=== PATIENT | female | born 1945 | race Caucasian/White ===

== ENCOUNTER → 2016-11-13 | Outpatient (CLI) | payer MEDICARE, OTHER ==
[2014-12-19 23:10] VITALS: BP 157/105
[~2016-11-13] MED LIST: ALPR1TAB2 PO; BARIUM SULFATE 2.1% 450 ML SUSP PO ONE; GUAI600T47 PO; MAGN400C PO; PSEU120T9 PO; TRAM50TA PO
--- NOTE | 2016-11-13 14:27 | RAD ---
Chest, 2 views, 11/13/2016: History: Weight loss The lungs are hyperexpanded suggesting COPD. The heart size is normal. The lungs are clear. There is no evidence of pleural fluid. IMPRESSION: No acute cardiopulmonary abnormality is detected.
--- NOTE | 2016-11-13 15:46 | RAD ---
CT of the abdomen and pelvis without contrast, 11/13/2016: History: Unexplained weight loss, left-sided pain, diarrhea Multidetector CT imaging was performed without IV contrast as requested. Oral contrast material was given for GI tract opacification. There is a vague low-density lesion in the posterior aspect of the right lobe of liver. A probable hemangioma was seen in this region on the study of 11/24/2008. This lesion is unchanged in size. The unopacified liver is otherwise unremarkable. No gallbladder abnormality is seen. The pancreas cannot be clearly from unopacified duodenum. No pancreatic mass is evident. The spleen is of normal size. The right kidney is malrotated. There is mild bilateral renal cortical scarring. There are several low density lesions in both kidneys, most likely representing cysts. There is a 5 mm low-density lesion in the posterior aspect of the right kidney which appears to be fat-containing, compatible with a tiny angiomyolipoma. The kidneys show no evidence of obstruction. The abdominal aorta is of normal caliber. Artifacts arising from a right hip prosthesis degrade image quality in the lower pelvis. No abdominal or pelvic adenopathy is seen. The uterus is surgically absent. The bowel loops are not dilated. Numerous surgical clips are present in the right lower quadrant. There is a paucity of intra-abdominal fat the bowel loops. There is moderate gastric mural thickening. Lack of gastric distention is probably contributing to this appearance. No free fluid or free air is evident in the abdomen or pelvis. There is a moderate right convexity lumbar scoliosis with moderate multilevel degenerative change. There is a mild spondylolisthesis at L4-5 due to facet joint arthropathy. The combination of findings is causing moderate central spinal stenosis at L4-5. IMPRESSION: 1. Bilateral renal cysts. 2. Tiny right renal angiomyolipoma. 3. Apparent gastric mural thickening is probably secondary to lack of gastric distention on these scans. Gastritis cannot be excluded. 4. Moderate central spinal stenosis at L4-5 PQRS Compliance Statement: One or more of the following individualized dose reduction techniques were utilized for this examination: 1. Automated exposure control 2. Adjustment of the mA and/or kV according to patient size 3. Use of iterative reconstruction technique
== END | disposition home or self-care (01) ==
LOC: CT 13:09
PROVIDERS: ATTEND Internal Medicine Gastroenterology
DX: R63.4 Abnormal weight loss (principal); R19.7 Diarrhea, unspecified
CPT/HCPCS: 71020; 74176

== ENCOUNTER 2017-08-11 20:46 | Emergency (ER) | payer MEDICARE, OTHER ==
[~2017-08-11 20:46] MED LIST changes: -BARIUM SULFATE 2.1% 450 ML SUSP PO ONE
--- NOTE | 2017-08-11 21:29 | PHYS DOC ---
Past History Past Medical History: Anxiety, Cancer Past Surgical History: Appendectomy, Hip Replacement, Hysterectomy, Other Smoking: Non-smoker Alcohol Use: Occasionally Drug Use: None Adult General Chief Complaint Chief Complaint: urinary urgency frequency and pain [facility] Patient is a 72-year-old female with a known history of hypertension and prior history of ovarian cancer as well as liposarcoma who received both surgically and chemotherapy for both ailments. She has a history of scoliosis and spinal stenosis as well as chronic sciatica and bladder suspension history who presents with dysuria urgency and frequency that began yesterday. She had noted increasing change in color darkness as well as some pink blood in her urine with the symptoms. She denies any nausea, vomiting, diarrhea but actually has a history of constipation. She was on tramadol for a long period of time but has weaned. Office and only takes Tylenol Motrin for her pain. She admits she's been on Omnicef about 12 days ago for a sinus infection which is recently seen by her primary care doctor on and started on clindamycin. She's only taken one dose today and actually has had a couple loose stools associated with it. She denies any fevers, chills, back pain that is new. She denies any trauma or falls. She denies any numbness and tingling in his new to her lower legs or denies any weakness in her lower extremity's. Review of Systems Review of Systems Constitutional: Denies fever or chills [] Eyes: Denies change in visual acuity, redness, or eye pain [] HENT: Denies nasal congestion or sore throat [] Respiratory: Denies cough or shortness of breath [] Cardiovascular: No additional information not addressed in [facility] [] GI: Positive for lower abdominal pain without nausea vomiting but she stools she has had a couple loose stools typically is constipated : Positive for dysuria urgency frequency and hematuria Musculoskeletal: Patient does complain of chronic lower back pain nothing new today no chronic joint pain Integument: Denies rash or skin lesions [] Neurologic: Denies headache, focal weakness or sensory changes since that she feels "" achy [] Endocrine: Denies polyuria or polydipsia [] All other systems were reviewed and found to be within normal limits, except as documented in this note. Allergies Allergies Allergies Coded Allergies Type Severity Reaction Last Updated Verified Sulfa (Sulfonamide Antibiotics) Allergy Intermediate 6/29/15 No ciprofloxacin Allergy Intermediate 12/20/14 No codeine Allergy Intermediate 12/20/14 No iodine Allergy Intermediate 12/20/14 No morphine Allergy Intermediate 12/20/14 No Physical Exam Physical Exam Of the vital signs recorded on the chart at this time they're within normal limits Constitutional: Well developed, well nourished, no acute distress, non-toxic appearance. [] Cardiovascular:Heart rate regular rhythm, no murmur [] Lungs & Thorax: Bilateral breath sounds clear to auscultation [] Abdomen: Bowel sounds normal, soft, tenderness only in the suprapubic region with no Feldman Prasad sign, no masses, no pulsatile masses. No guarding rebound or organomegaly no Jason's or McBurney's point tenderness [] Skin: Warm, dry, no erythema, no rash. [] Back: No tenderness, no CVA tenderness. [] Neurologic: Alert and oriented X 3, normal motor function, normal sensory function, no focal deficits noted. [] Psychologic: Affect normal, judgement normal, mood normal. [] EKG EKG [] Radiology/Procedures Radiology/Procedures [] Course & Med Decision Making Course & Med Decision Making Pertinent Labs and Imaging studies reviewed. (See chart for details) [] Laboratory Tests Test 08/11/17 21:00 Urine Collection Type Unknown Urine Color [place] Urine Clarity Clear Urine pH 7.5 Urine Specific [place] 1.015 Urine Protein 100 mg/dl (NEG-TRACE) Urine Glucose (UA) Neg mg/dL (NEG) Urine Ketones (Stick) Neg mg/dL (NEG) Urine Blood Large (NEG) Urine Nitrite Neg (NEG) Urine Bilirubin Neg (NEG) Urine Urobilinogen Dipstick 0.2 mg/dL (0.2 mg/dL) Urine Leukocyte Esterase Small (NEG) Urine RBC 20-40 /HPF (0-2) Urine WBC 11-20 /HPF (0-4) Urine Squamous Epithelial Cells Occ /LPF Urine Bacteria Few /HPF (0-FEW) Patient's urinalysis has a few epithelial cells, significant bacteria, white blood cells and red blood cells. Given her symptoms I'll treat this as a UTI Patient has a soft abdomen and there is no tenderness in the right lower quadrant and she has no appendix. Impression: UTI, mild hematuria discharge: I've spoken with the patient and/or caregivers. I've explained the patient's condition, diagnosis and treatment plan based on information available to me at this time. I've answered the patient's and/or caregivers questions and addressed any concerns. The patient and/or caregivers have a good understanding the patient's diagnosis, condition and treatment plan as can be expected at this point. Vital signs have been stabilized. The patient's condition is stable for discharge from the emergency department. The patient will pursue further outpatient evaluation with her primary care provider or other designated consulting physician as outlined in the discharge instructions. Patient and/or caregivers are agreeable to this plan of care and follow-up instructions have been explained in detail. The patient and/or caregivers have received these instructions in written format and expressed understanding of these discharge instructions. The patient and her caregivers are aware that if any significant change in condition or worsening of symptoms should prompt him to immediately return to this of the closest emergency department. If an emergent department is not readily available I would encourage him to call 911. Zahida Disclaimer Dragon Disclaimer This electronic medical record was generated, in whole or in part, using a voice recognition dictation system. Departure Departure: Impression: Primary Impression: Urinary tract infection Disposition: HOME, SELF-CARE Condition: IMPROVED Referrals: DESEAN KOENIG MD (PCP) Patient Instructions: Urinary Tract Infection Additional Instructions: discharge: I've spoken with the patient and/or caregivers. I've explained the patient's condition, diagnosis and treatment plan based on information available to me at this time. I've answered the patient's and/or caregivers questions and addressed any concerns. The patient and/or caregivers have a good understanding the patient's diagnosis, condition and treatment plan as can be expected at this point. Vital signs have been stabilized. The patient's condition is stable for discharge from the emergency department. The patient will pursue further outpatient evaluation with her primary care provider or other designated consulting physician as outlined in the discharge instructions. Patient and/or caregivers are agreeable to this plan of care and follow-up instructions have been explained in detail. The patient and/or caregivers have received these instructions in written format and expressed understanding of these discharge instructions. The patient and her caregivers are aware that if any significant change in condition or worsening of symptoms should prompt him to immediately return to this of the closest emergency department. If an emergent department is not readily available I would encourage him to call 911. Scripts Naproxen Sodium (NAPROXEN SODIUM) 275 Mg Tablet 275 MG PO BID for 7 Days, #14 TAB Prov: JUSTYNA RAMIREZ MD 08/11/17 Phenazopyridine Hcl (PYRIDIUM) 200 Mg Tablet 200 MG PO TID for 5 Days, #15 TAB Prov: JUSTYNA RAMIREZ MD 08/11/17 Nitrofurantoin Monohyd/M-Cryst (MACROBID 100 MG CAPSULE) 100 Mg Capsule 1 CAP PO BID, #20 CAP Prov: JUSTYNA RAMIREZ MD 08/11/17 JUSTYNA RAMIREZ MD Aug 11, 2017 21:28
[2017-08-11 21:56] LABS: BILIRUBIN,URINE NEG (NEG); CLARITY,URINE CLEAR; COLOR,URINE PINK; GLUCOSE,URINE NEG (NEG)
[2017-08-11 21:57] LABS: BACTERIA,URINE FEW /HPF (0-FEW); NITRITE,URINE NEG (NEG); RBC,URINE 20-40 /HPF (0-2); SQUAMOUS EPITHELIAL CELL,UR OCC /LPF; UROBILINOGEN,URINE 0.2 mg/dL (0.2 mg/dL)
[2017-08-11] MEDS ORDERED: NITR100C62 PO (22:08)
[2017-08-11] MEDS ORDERED: NAPR275T59 PO (22:08)
[2017-08-11] MEDS ORDERED: PHEN-318 PO (22:08)
[2017-08-11 22:21] VITALS: BP 150/90
== END 2017-08-11 22:23 | disposition home or self-care (01) ==
LOC: ER 20:46
DX: N39.0 Urinary tract infection, site not specified (principal); R31.9 Hematuria, unspecified; F41.9 Anxiety disorder, unspecified; I10 Essential (primary) hypertension; Z88.2 Allergy status to sulfonamides; Z88.1 Allergy status to other antibiotic agents; Z88.5 Allergy status to narcotic agent; Z91.041 Radiographic dye allergy status
CPT/HCPCS: 81001; 87086; 99284

== ENCOUNTER → 2018-07-31 | Outpatient (CLI) | payer MEDICARE, OTHER ==
[~2018-07-31] MED LIST changes: +NAPR275T59 PO; +NITR100C62 PO; +PHEN-318 PO
--- NOTE | 2018-07-31 14:56 | RAD ---
CT left hip without contrast TECHNIQUE: Helical multiplanar reconstructed noncontrast CT imaging of the left hip was acquired. HISTORY: Left hip pain. No injury. FINDINGS: No fracture or dislocation of the left hip. No imaging changes of osteonecrosis. There is mild joint space narrowing perhaps due to chondromalacia without significant arthritic change of the left hip evident. No pathologic lytic or sclerotic bone lesion. There is a subcentimeter well-circumscribed round lytic lesion of the anterior subcapital femoral neck most typical of a synovial herniation or bone cyst. The soft tissues demonstrate no edema or hematoma or mass. Visualized lower lumbar spine demonstrates disc height loss, disc bulges and endplate and facet spurs with spinal canal and neural foraminal stenoses with probable severe stenotic disease at L4-L5 associated with grade 1 anterolisthesis of L4 on L5. IMPRESSION: No acute osseous injury of the left hip. Lower lumbar spine disc disease as described above. Exposure: One or more of the following individualized dose reduction techniques were utilized for this examination: 1. Automated exposure control 2. Adjustment of the mA and/or kV according to patient size 3. Use of iterative reconstruction technique Electronically signed by: Sachin Gonzales MD (07/31/2018 2:51 PM) [id number]
== END | disposition home or self-care (01) ==
LOC: CT 14:30
PROVIDERS: ATTEND Family Medicine
DX: M25.552 Pain in left hip (principal); M46.46 Discitis, unspecified, lumbar region
CPT/HCPCS: 73700

== ENCOUNTER → 2019-03-24 | Outpatient (CLI) | payer OTHER, MEDICARE ==
--- NOTE | 2019-03-24 14:09 | RAD ---
CHEST PA LATERAL History: Pain, left rib contusion Comparison: 11/13/2016 2 view chest x-ray exam. Findings: The cardiomediastinal silhouette is normal. Pulmonary vasculature is normal. The lungs are clear. No pleural effusion or pneumothorax is seen. Pulmonary hyperinflation is present. There is no acute bone abnormality. Osteopenia noted. Dextroconvex rotoscoliosis of the low thoracic to upper lumbar spine noted. IMPRESSION: No acute cardiopulmonary process. COPD. No displaced fracture. Consider further imaging if fracture is a persistent concern. Electronically signed by: Tomas Walker MD (03/24/2019 2:06 PM) [facility]
--- NOTE | 2019-03-24 14:10 | RAD ---
Examination: CT HEAD WO CONTRAST History: Headache Comparison/Correlation: 05/03/2016 CT head and maxillofacial without contrast Findings: Axial images of the head rotated without contrast. Mild atrophy is present. No intracranial hemorrhage, midline shift, or mass effect. Bony structures are intact. Impression: No suspicious process. PQRS Compliance Statement: One or more of the following individualized dose reduction techniques were utilized for this examination: 1. Automated exposure control 2. Adjustment of the mA and/or kV according to patient size 3. Use of iterative reconstruction technique Electronically signed by: Tomas Walker MD (03/24/2019 2:07 PM) [facility]
== END | disposition home or self-care (01) ==
LOC: DXRAD 13:28
PROVIDERS: ATTEND Family Medicine
DX: S20.212A Contusion of left front wall of thorax, initial encounter (principal); S09.8XXA Other specified injuries of head, initial encounter; R51 Headache; J44.9 Chronic obstructive pulmonary disease, unspecified; M41.85 Other forms of scoliosis, thoracolumbar region; X58.XXXA Exposure to other specified factors, initial encounter; Y93.89 Activity, other specified; Y92.89 Other specified places as the place of occurrence of the external cause; Y99.8 Other external cause status
CPT/HCPCS: 70450; 71046

== ENCOUNTER → 2019-04-27 | Outpatient (CLI) | payer MEDICARE, OTHER ==
--- NOTE | 2019-04-27 14:35 | RAD ---
EXAM: Ultrasound neck soft tissues. HISTORY: Enlarged lymph nodes. COMPARISON: None. FINDINGS: Sonographic evaluation of the neck soft tissues was performed at the sites of concern. At the anterior site of concern, a normal-appearing left cervical lymph node measures 9 x 7 mm and has a normal fatty hilus. At the posterior site of concern, there is an osseous or densely calcified structure. IMPRESSION: 1. Normal left neck lymph node. No pathologically appearing lymph nodes are seen. 2. The posterior left lateral site of concern appears to correspond with an osseous structure. Correlate for the anatomy of concern. CT of the neck soft tissues could further evaluate if this remains unclear. Electronically signed by: Makayla Villarreal MD (04/27/2019 2:32 PM) [facility]
== END | disposition home or self-care (01) ==
LOC: US 13:00
PROVIDERS: ATTEND Family Medicine
DX: R59.0 Localized enlarged lymph nodes (principal)
CPT/HCPCS: 76536

== ENCOUNTER → 2019-06-04 | Outpatient (CLI) | payer MEDICARE, OTHER ==
--- NOTE | 2019-06-09 17:25 | RAD ---
DATE: 06/04/2019. EXAM: MAMMO CRISTY SCREENING BILATERAL. HISTORY: Routine mammographic screening. COMPARISON: 09/13/2017. This study was interpreted with the benefit of Computerized Aided Detection (CAD). FINDINGS: Breast Density: HETERO The breast parenchyma is heterogenously dense, which could reduce sensitivity of mammography. Breast parenchyma level C.. There are no suspicious masses, microcalcifications or architectural distortion. Scattered and vascular calcifications are benign. A circumscribed nodular density deep to the right nipple is unchanged. The parenchymal pattern is stable. BI-RADS CATEGORY: 2 BENIGN FINDING(S). RECOMMENDED FOLLOW-UP: 12M 12 MONTH FOLLOW-UP. PQRS compliance statement: Patient information was entered into a reminder system with a target due date 06/04/2020 for the next mammogram. Mammography is a sensitive method for finding small breast cancers, but it does not detect them all and is not a substitute for careful clinical examination. A negative mammogram does not negate a clinically suspicious finding and should not result in delay in biopsying a clinically suspicious abnormality. "Our facility is accredited by the [employer] Mammography [employer]."
== END | disposition home or self-care (01) ==
LOC: MAMMO 11:37
PROVIDERS: ATTEND Obstetrics & Gynecology
DX: Z12.31 Encounter for screening mammogram for malignant neoplasm of breast (principal); N64.89 Other specified disorders of breast
CPT/HCPCS: 77063; 77067

== ENCOUNTER → 2020-08-31 | Outpatient (CLI) | payer MEDICARE, OTHER ==
--- NOTE | 2020-08-31 12:07 | RAD ---
EXAM: Bilateral digital diagnostic mammogram with tomosynthesis; left breast sonogram. HISTORY: 75-year-old female presents with palpable left breast lump. The patient is due for bilateral mammography. TECHNIQUE: Full-field digital craniocaudal and mediolateral oblique 2D and 3D tomosynthesis images of both breasts are obtained for evaluation. Computer aided detection was applied. Sonographic imaging of the left breast and axilla at the site of palpable concern was performed. COMPARISON: 08/05/2018 and 09/13/2017 BREAST PARENCHYMAL DENSITY: Level C - Heterogeneously dense. FINDINGS: There is no new suspicious mass, microcalcification or region of architectural distortion. There are stable areas of asymmetry and nodularity within both breasts. The 3 year course of stabilit y favors benignity. There are few benign calcifications. Sonographic imaging of the left breast demonstrates a benign lymph node measuring 1.2 cm at the 2:00 position 11 cm from the nipple, corresponding with the site of palpable concern. This demonstrates a fatty hilum and thin cortex. This demonstrates no suspicious sonographic features. There is a 9 mm ci rcumscribed solid nodule without flow isoechoic to fat within the superficial soft tissues at the 10: 00 position 10 cm from the nipple, the appearance of which favors a lipoma. This demonstrates no susp icious sonographic features. No suspicious sonographic lesion is seen IMPRESSION: 1. Benign axillary tail lymph node and small benign lipoma within the posterior 2:00 and 10:00 positi ons of the left breast at sites of reported concern. There is no suspicious mammographic or sonograph ic finding. 2. BI-RADS Category 2: Benign finding(s). Annual mammography is recommended. RECOMMENDATION: Continued clinical follow-up of palpable abnormalities is recommended. Repeat imaging can be performed if there is continuing concern. Negative imaging should not preclude the decision t o biopsy a palpable abnormality if there is continued concern. If your mammogram demonstrates that you have dense breast tissue, which could hide abnormalities, and if you have other risk factors for breast cancer that have been identified, you might benefit from s upplemental screening tests that may be suggested by your ordering physician. Dense breast tissue, i n and of itself, is a relatively common condition. This information is not provided to cause undue c oncern, but rather to raise your awareness and to promote discussion with your physician regarding th e presence of other risk factors, in addition to dense breast tissue. A report of your mammography re sults will be sent to you and your physician. You should contact your physician if you have any ques tions or concerns regarding this report. Mammography is a sensitive method for finding small breast cancers, but it does not detect them all a nd is not a substitute for careful clinical examination. A negative mammogram does not negate a clin ically suspicious finding and should not result in delay in biopsying a clinically suspicious abnorma lity. PQRS compliance statement - Patient information was entered into a reminder system with a target due date for the next mammogram. "Our facility is accredited by the [employer] Mammography Program." Electronically signed by: Sharon Mustafa MD (08/31/2020 12:05 PM) [id number]
== END ==
LOC: MAMMO 11:05
PROVIDERS: ATTEND Family Medicine
DX: N63.20 Unspecified lump in the left breast, unspecified quadrant (principal); R92.2 Inconclusive mammogram
CPT/HCPCS: 76641; 77066; G0279; 77062

== ENCOUNTER → 2021-10-19 | Outpatient (CLI) | payer MEDICARE, OTHER ==
--- NOTE | 2021-10-19 15:22 | RAD ---
INDICATION: Screening for osteopenia/osteoporosis. Postmenopausal evaluation COMPARISON: None. TECHNIQUE: Bone densitometry was performed through the lumbar spine and proximal femur. IMPRESSION: Lumbar Spine: BMD: 0.75 T-Score: -3.6 Range: Osteoporotic. Degenerative changes the spine with scoliotic curvature. Proximal Femur: BMD: 0.5 T-Score: -3.5 Range: Osteoporotic World Health Organization Criteria for Bone Density: T-Score: > -1.0: Normal Range < -1.0 to -2.5: Osteopenic Range < -2.5: Osteoporotic Range Electronically signed by: Jean Camacho MD (10/19/2021 3:20 PM) [id number]
--- NOTE | 2021-10-19 15:37 | RAD ---
Bilateral digital screening 2-D and 3-D (tomosynthesis) mammogram: Reason for examination: Routine screening. Comparison is made to previous mammograms from 08/31/2020 and 06/04/2019. Bilateral mammograms in CC and oblique projections were obtained with 2-D imaging and 3-D tomosynthes is imaging and reviewed on the workstation. Interpretation was made with the benefit of CAD. Findings: Breast density: Category C. The breasts are heterogeneously dense, which may obscure small masses. There are no new suspicious masses, malignant appearing calcifications or architectural distortion. T here are small oval circumscribed masses in both breasts which are unchanged. Impression: No evidence of malignancy. ASSESSMENT: BI-RADS 2. Benign finding. Recommendations: Routine screening mammograms. This patient's information has been entered into a reminder system for the patient to be notified wit h the results of her examination and a target date for the next mammogram. Your patient's mammogram demonstrates that she has dense breast tissue (breast density category C or D), which could hide abnormalities, and if she has other risk factors for breast cancer that have bee n identified, she might benefit from supplemental screening tests that may be suggested by you as her ordering physician. Dense breast tissue, in and of itself, is a relatively common condition. Therefo re, this information is not provided to cause undue concern, but rather to raise your awareness and t o promote discussion with your patient regarding the presence of other risk factors, in addition to d ense breast tissue. Electronically signed by: Katharina Toledo MD (10/19/2021 3:34 PM) [id number]
== END ==
LOC: MAMMO 14:21
PROVIDERS: ATTEND Physician Assistant
DX: Z12.31 Encounter for screening mammogram for malignant neoplasm of breast (principal); M81.0 Age-related osteoporosis without current pathological fracture
CPT/HCPCS: 77063; 77067; 77080